=== PATIENT | male | born 1985 | race Caucasian/White ===

== ENCOUNTER 2019-04-02 18:06 | Emergency (ER) | payer SELFPAY ==
[~2019-04-02] VITALS: Ht 167.6 cm; Wt 60.3 kg
--- NOTE | 2019-04-02 19:06 | NUR ---
pt decided to leave.
== END 2019-04-02 19:09 | disposition home or self-care (01) ==
LOC: ER 18:06
DX: Z53.21 Procedure and treatment not carried out due to patient leaving prior to being seen by health care provider (principal)
CPT/HCPCS: A4663